=== PATIENT | male | born 1950 | race Caucasian/White ===

== ENCOUNTER 2020-05-18 10:59 | Outpatient (CLI) | payer MEDICARE ==
--- NOTE | 2020-05-18 13:37 | BD ---
Exam: DEXA Bone Density 05/18/20 INDICATIONS: 69-year-old male for osteoporosis screening. Lumbar Spine: BMD (g/cm2) T-SCORE L1 0.960 -1.0 L2 1.263 0.6 L3 1.305 1.8 L4 1.319 2.1 L1-L4 1.192 0.9 Femoral Neck: 0.765 -1.2 Total Femur: 0.947 -0.6 Impression: 1. Bone mineral density of the lumbar spine within normal range. 2. Bone mineral density of the femoral neck indicates osteopenia. Ten year fracture risk: Major osteoporotic fracture: 5.65 Hip fracture: 1.0% POS: AGW
== END 2020-05-18 11:00 | disposition home or self-care (01) ==
LOC: BICMAMMO 10:59
PROVIDERS: ATTEND Internal Medicine Endocrinology, Diabetes & Metabolism
DX: M81.0 Age-related osteoporosis without current pathological fracture (principal); M85.859 Other specified disorders of bone density and structure, unspecified thigh
CPT/HCPCS: 77080